=== PATIENT | female | born 1975 | race Caucasian/White ===

== ENCOUNTER 2022-10-29 15:17 | Outpatient (CLI) | payer BC, OTHER | END 2022-10-29 15:18 | disposition home or self-care (01) | LOC: CSHMAMMO 15:17 | PROVIDERS: ATTEND Obstetrics & Gynecology | DX: Z12.31 Encounter for screening mammogram for malignant neoplasm of breast (principal); N63.12 Unspecified lump in the right breast, upper inner quadrant | CPT/HCPCS: 77063; 77067 ==

== ENCOUNTER → 2022-11-13 | Day surgery (SDC) | payer BC | LOC: CSHULT 12:38 | PROVIDERS: ATTEND Obstetrics & Gynecology | PROC: 0H95XZX Drainage of Chest Skin, External Approach, Diagnostic (ICD-10-PCS; principal; 2022-11-13) | DX: D24.1 Benign neoplasm of right breast (principal) | CPT/HCPCS: 19083; 88305; G0279 ==

== ENCOUNTER 2023-11-15 14:32 | Outpatient (CLI) | payer BC | END 2023-11-15 14:33 | disposition home or self-care (01) | LOC: CSHMAMMO 14:32 | PROVIDERS: ATTEND Obstetrics & Gynecology | DX: Z12.31 Encounter for screening mammogram for malignant neoplasm of breast (principal) | CPT/HCPCS: 77063; 77067 ==